=== PATIENT | female | born 1975 | race Caucasian/White ===

== ENCOUNTER 2017-09-01 11:27 | Observation (INO) | payer OTHER ==
--- NOTE | 2017-09-01 12:34 | C.PDOC ---
History Of Present Illness 42 Y/O FEMALE C/O CHEST AND BACK PAIN FOR A COUPLE WEEKS, PT ATTRIBUTES PAIN TO "INCREASED STRESS". PT STATES MORE PAIN INTENSIFIED THIS MORNING, PREDOMINANTLY TO LEFT CHEST AND LEFT ARM. NOW C/O NEW ONSET LEFT FACE "DROOP AND NUMBNESS" AND LEFT ARM NUMBNESS STARTING AT APPX 09:30 TODAY. PT STATES SHE NOTICED SOME FACIAL ASYMMETRY WHEN SYMPTOMS FIRST STARTED. PT REPORTS NUMBNESS HAS BEEN INTERMITTENT SINCE ONSET THIS MORNING; CURRENTLY IN ER, STILL WITH NUMBNESS. DENIES SOB, NAUSEA, VOMITING, HEADACHE, VISUAL CHANGES, OR OTHER ASSOC SX. PT NOTES HISTORY OF SEIZURES, AND HAD ONE YESTERDAY. NO BREAKTHROUGH SEIZURE TODAY. Time Seen by Provider: 09/01/17 12:01 Chief Complaint (Nursing): Chest Pain History Per: Patient History/Exam Limitations: no limitations Onset/Duration Of Symptoms: Days Current Symptoms Are (Timing): Still Present Recent travel outside of the [place]: No Past Medical History Reviewed: Historical Data, Nursing Documentation, Vital Signs Vital Signs: Last Vital Signs Temp Pulse 79 09/01/17 14:16 Resp 18 09/01/17 14:16 BP 106/68 09/01/17 14:16 Pulse Ox 100 09/01/17 14:16 - Medical History PMH: Asthma, Fibromyalgia, Seizures Surgical History: - [facility] Procedures OTH NONOPER CARD AND VASC MEASURE (07/11/14) SPINAL TAP (07/12/13) Family History: States: Diabetes - Social History Hx Tobacco Use: Yes Hx Alcohol Use: Yes Hx Substance Use: No - Immunization History Hx Tetanus Toxoid Vaccination: Yes Hx Influenza Vaccination: No Hx Pneumococcal Vaccination: No Review Of Systems Except As Marked, All Systems Reviewed And Found Negative. Constitutional: Negative for: Fever, Chills Cardiovascular: Positive for: Chest Pain. Negative for: Palpitations Respiratory: Negative for: Cough, Shortness of Breath, Wheezing Gastrointestinal: Negative for: Nausea, Vomiting, Abdominal Pain Musculoskeletal: Positive for: Back Pain. Negative for: Neck Pain Skin: Negative for: Rash Neurological: Positive for: Numbness (LEFT FACE, LEFT ARM). Negative for: Headache, Dizziness Physical Exam - Physical Exam Appears: Non-toxic, No Acute Distress Skin: Normal Color, Warm, Dry Head: Atraumatic, Normacephalic Eye(s): bilateral: Normal Inspection, PERRL, EOMI Chest: Symmetrical, No Tenderness Cardiovascular: Rhythm Regular, No Murmur Respiratory: Normal Breath Sounds, No Accessory Muscle Use, No Rales, No Rhonchi , No Wheezing Gastrointestinal/Abdominal: Soft, No Tenderness Back: Normal Inspection Extremity: Normal ROM, Capillary Refill (< 2 SEC.) Neurological/Psych: Oriented x3, Other (SEE NIH FOR NEURO EXAM) Gait: Steady ED Course And Treatment - Laboratory Results Result Diagrams: 09/01/17 12:49 09/01/17 12:49 ECG: Interpreted By Me ECG Rhythm: Sinus Rhythm ECG Interpretation: Normal Rate From EC - Radiology CXR: Interpreted by Oh CXR Interpretation: Yes: No Acute Disease - CT Scan/US CT HEAD Other Rad Studies (CT/US): Read By Radiologist, Radiology Report Reviewed CT/US Interpretation: FINDINGS: HEMORRHAGE: No intracranial hemorrhage. BRAIN : No mass effect or edema. No atrophy or chronic microvascular ischemic changes. VENTRICLES: Unremarkable. No hydrocephalus. CALVARIUM: Unremarkable. PARANASAL SINUSES: Unremarkable as visualized. No significant inflammatory changes. MASTOID AIR CELLS: Unremarkable as visualized. No inflammatory changes. OTHER FINDINGS: None. IMPRESSION: No evidence of acute intracranial hemorrhage territorial infarct mass effect or midline shift. Baseline study in this institution. NIHSS Stroke Scale - Date/Time Evaluation Performed Date Performed: 09/01/17 Time Performed: 12:30 When Was NIHSS Performed: Code Stroke - How Severe is the Stroke Level of Consciousness: 0=Alert LOC to Questions: 0=Both comments correct LOC to commands: 0=Obeys both correctly Best Gaze: 0=Normal Visual: 0=No visual loss Facial: 0=Normal Motor Arm - Left: 0=No drift Motor Arm - Right: 0=No drift Motor Leg - Left: 0=No drift Motor Leg - Right: 0=No drift Limb Ataxia: 0=Absent Sensory: 1=Mild to moderate loss Best Language: 0=No aphasia Dysarthia: 0=Normal articulation Extinction & Inattention (Neglect): 0=Normal, no object Score: 1 NIHSS Stroke Scale 2 - Date/Time Evaluation Performed Date Performed: 09/01/17 Time Performed: 13:50 When Was NIHSS Performed: Code Stroke Re-evaluation - How Severe is the Stroke Level of Consciousness: 0=Alert LOC to Questions: 0=Both comments correct LOC to commands: 0=Obeys both correctly Best Gaze: 0=Normal Visual: 0=No visual loss Facial: 0=Normal Motor Arm - Left: 0=No drift Motor Arm - Right: 0=No drift Motor Leg - Left: 0=No drift Motor Leg - Right: 0=No drift Limb Ataxia: 0=Absent Sensory: 0=Normal Best Language: 0=No aphasia Dysarthia: 0=Normal articulation Extinction & Inattention (Neglect): 0=Normal, no object Score: 0 Progress - Re-Evaluation Re-evaluation Note: 09/01/17 12:30 CODE STROKE ACTIVATED 09/01/17 13:52 D/W DR MARTÍNEZ WILL ADMIT 09/01/17 13:54 DR VALDERRAMA NOTIFIED OF ADMISSION - Data Reviewed Data Reviewed: Lab, Diagnostic imaging, EKG, Old records - Critical Care Citical Care: Excluding Proc Time Critical Care Time: 90 minutes rTPA Inclusion/Exclusion - Refusal of Treatment Patient Refused Treatment: No - Inclusion Criteria for Altepase Patient is 18 years or Older: Yes The Clinical Diagnosis of Ischemic Stroke That is Causing a Potentially Disabling Neurological Deficit: Yes Time of Onset is Well Established to be Less Than 270 Minute Before Treatment Would Begin: No Risk/Benefit Discussed With Patient/Family Member Present: No - Exclusion Criteria for Altepase Uncontrolled Hypertension at Time of Treatment (Systolic BP above 185 or Diastolic BP above 110 mmHg): No Active Internal Bleeding: No Known Bleeding Diathesis Including but Not Limited to: Platelets Below 100,000/ mm,PTT Above 40 sec After Heparin Use, Current Use of Oral Anitcoagulant With INR Greater Than 1.7 or PT Greater Than 15 secs: No Evidence of an Intracranial Hemorrhage: No Evidence of Major Acute Infarct With Signs Greater Than 1/3 MCA Territory: No Suspicion of Subarachnoid Hemorrhage on Pretreatment Evaluation Even if CT Head Negative For Hemorrhage: No - Warning to TPA With Conditions Following Conditions Weighed Against Anticipated Benefit: Yes Condition: Stroke Serevity Too Mild, Rapid Improvement Disposition Counseled Patient/Family Regarding: Studies Performed, Diagnosis - Disposition Disposition: HOSPITALIZED Disposition Time: 13:52 Condition: STABLE - POA Present On Arrival: None - Clinical Impression Clinical Impression: Chest pain, TIA (transient ischemic attack) - Scribe Statement The provider has reviewed the documentation as recorded by the Scribe SM All medical record entries made by the Scribe were at my direction and personally dictated by me. I have reviewed the chart and agree that the record accurately reflects my personal performance of the history, physical exam, medical decision making, and the department course for this patient. I have also personally directed, reviewed, and agree with the discharge instructions and disposition. Decision To Admit - Pt Status Changed To: Hospital Disposition Of: Observation - . Bed Request Type: Telemetry Admitting Physician: Jas Martínez Jr. Patient Diagnosis: Chest pain, TIA (transient ischemic attack)
--- NOTE | 2017-09-01 12:46 | CT ---
PROCEDURE: CT HEAD WITHOUT CONTRAST. HISTORY: Code Stroke L FACIAL NUMB COMPARISON: None available. TECHNIQUE: Axial computed tomography images were obtained through the head/brain without intravenous contrast. Radiation dose: Total exam DLP = 854.48 mGy-cm. This CT exam was performed using one or more of the following dose reduction techniques: Automated exposure control, adjustment of the mA and/or kV according to patient size, and/or use of iterative reconstruction technique. FINDINGS: HEMORRHAGE: No intracranial hemorrhage. BRAIN: No mass effect or edema. No atrophy or chronic microvascular ischemic changes. VENTRICLES: Unremarkable. No hydrocephalus. CALVARIUM: Unremarkable. PARANASAL SINUSES: Unremarkable as visualized. No significant inflammatory changes. MASTOID AIR CELLS: Unremarkable as visualized. No inflammatory changes. OTHER FINDINGS: None. IMPRESSION: No evidence of acute intracranial hemorrhage territorial infarct mass effect or midline shift. Baseline study in this institution.
[2017-09-01 12:47] VITALS: BMI 28.0
[2017-09-01 13:02] LABS: BASO # 0.1 K/uL (0.0-0.2); BASO % 0.6 % (0.0-2.0); EOS # 0.1 K/uL (0.0-0.7); EOS % 1.5 % (0.0-4.0); HEMATOCRIT 40.4 % (34.0-47.0); LYMPH # 2.6 K/uL (1.0-4.3); LYMPH % 28.6 % (20.0-40.0); MEAN CORPUSCULAR HEMOGLOBIN 28.9 pg (27.0-31.0); MEAN CORPUSCULAR HGB CONC 33.2 g/dL (33.0-37.0); MEAN PLATELET VOLUME 9.1 fL (7.2-11.7); MONO # 0.8 K/uL (0.0-0.8); RED CELL DISTRIBUTION WIDTH 13.4 % (11.5-14.5); WHITE BLOOD COUNT 8.9 K/uL (4.8-10.8)
[2017-09-01 13:03] LABS: CHLORIDE 105 mmol/L (98-107)
[2017-09-01 13:04] LABS: POTASSIUM 3.8 mmol/L (3.6-5.2); SODIUM 134 mmol/L (132-148)
[2017-09-01 13:06] LABS: CARBON DIOXIDE 17 mmol/L (22-30); CHOLESTEROL 209 mg/dL (0-199); GFR AFRICAN-AMERICAN > 60
[2017-09-01 13:07] LABS: ALB/GLOB RATIO 1.7 (1.0-2.1); ALKALINE PHOSPHATASE 54 U/L (38-126); ALT/SGPT 34 U/L (9-52); AST/SGOT 21 U/L (14-36); BILIRUBIN,TOTAL 0.9 mg/dL (0.2-1.3); BLOOD UREA NITROGEN 14 mg/dL (7-17); CALCIUM 9.1 mg/dl (8.6-10.4); GLUCOSE,RANDOM 89 mg/dL (65-105); TOTAL PROTEIN 7.1 g/dL (6.3-8.3)
--- NOTE | 2017-09-01 13:18 | RAD ---
HISTORY: CP COMPARISON: Comparison chest 07/14/2015 FINDINGS: LUNGS: No active pulmonary disease. PLEURA: No significant pleural effusion identified, no pneumothorax apparent. CARDIOVASCULAR: Normal. OSSEOUS STRUCTURES: No significant abnormalities. VISUALIZED UPPER ABDOMEN: Normal. OTHER FINDINGS: None. IMPRESSION: No active disease.
[2017-09-01 13:19] LABS: INR 1.1
--- NOTE | 2017-09-01 18:06 | CP.PCM.HP ---
History of Present Illness - History of Present Illness History of Present Illness: CC: facial droop and left arm weakness This is a 42 year old female with a past medical history psychogenic nonepileptic seizures, converstion disorder, fibromyalgia, PTSD, TIA in 2010, who presented to the ED as a code stroke with numbness on left side, left facial droopness, and left arm weakness which began this morning at 9am. After the onset of these symptoms this morning the patient took a shower and called an uber and came to the hospital. She says her symptoms persisted until she arrived to the ED at which point they resolved soon after. She also admits to left sided chest pain that's been ongoing for the past 3 weeks. 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 On review of systems she denied nausea, vomiting, diarrhea, constipation, headache, blurry vision, other focal deficits, palpitations, fever , chills. PMD: Dr Martínez PMHx: psychogenic nonepileptic seizures, fibromyalgia, PTSD, TIA 2010, and per Dr Martínez patient has conversion disorder PSHx: c-sections x3 Allergies: levofloxacin - anaphylaxis, seafood - anaphylaxis Home Meds: levetiracetam 500mg po bid, topiramate 100mg po bid, celexa 20mg po qd FamHx: Father - HTN, DM, Pancreatic CA. Mother - HTN, DM Present on Admission - Present on Admission Any Indicators Present on Admission: No Review of Systems - Constitutional Constitutional: absent: Chills, Fever, Headache - EENT Eyes: absent: Blurred Vision, Change in Vision Ears: absent: Ear Pain Nose/Mouth/Throat: absent: Nasal Congestion - Cardiovascular Cardiovascular: Chest Pain. absent: Diaphoresis, Dyspnea, Lightheadedness, Palpitations - Respiratory Respiratory: absent: Cough, Hemoptysis, Wheezing - Gastrointestinal Gastrointestinal: absent: Abdominal Pain, Diarrhea - Genitourinary Genitourinary: absent: Dysuria - Musculoskeletal Musculoskeletal: Muscle Weakness. absent: Back Pain - Neurological Neurological: Numbness, Focal Weakness, Paresthesias - Psychiatric Psychiatric: Depression Past Patient History - Infectious Disease Hx of Infectious Diseases: None - Past Medical History & Family History Past Medical History?: Yes - Past Social History Smoking Status: Light Smoker < 10 Cigarettes Daily - PULMONARY Hx Asthma: Yes - NEUROLOGICAL Hx Seizures: Yes - HEENT Hx HEENT Problems: No - RENAL Hx Chronic Kidney Disease: No - ENDOCRINE/METABOLIC Hx Endocrine Disorders: No Hx Systemic Lupus Erythematosus: Yes - HEMATOLOGICAL/ONCOLOGICAL Hx Blood Disorders: No - INTEGUMENTARY Hx Dermatological Problems: No - MUSCULOSKELETAL/RHEUMATOLOGICAL Hx Musculoskeletal Disorders: Yes - GASTROINTESTINAL Hx Gastrointestinal Disorders: No - GENITOURINARY/GYNECOLOGICAL Hx Sexually Transmitted Disorders: No - PSYCHIATRIC Hx Substance Use: No - ANESTHESIA Hx Anesthesia: Yes Meds Allergies/Adverse Reactions: Allergies Allergy/AdvReac Type Severity Reaction Status Date / Time levofloxacin Allergy Severe SHORTNESS Verified 09/01/17 11:42 OF BREATH shellfish derived Allergy Severe ANGIOEDEMA Verified 09/01/17 11:42 dye Allergy Severe SHORTNESS Uncoded 09/01/17 11:42 OF BREATH iv dye Allergy Uncoded 09/01/17 11:42 Physical Exam - Constitutional Appears: Well, No Acute Distress - Head Exam Head Exam: ATRAUMATIC, NORMAL INSPECTION - Eye Exam Eye Exam: EOMI Pupil Exam: PERRL - ENT Exam ENT Exam: Mucous Membranes Moist - Neck Exam Neck exam: Positive for: Normal Inspection. Negative for: Tenderness - Respiratory Exam Respiratory Exam: Clear to Auscultation Bilateral, NORMAL BREATHING PATTERN. absent: Rales, Rhonchi, Wheezes - Cardiovascular Exam Cardiovascular Exam: REGULAR RHYTHM, RRR, +S1, +S2. absent: Bradycardia, Tachycardia, Irregular Rhythm, JVD - GI/Abdominal Exam GI & Abdominal Exam: Normal Bowel Sounds, Soft. absent: Distended, Firm, Guarding, Tenderness - Extremities Exam Extremities exam: Positive for: full ROM, normal capillary refill, normal inspection. Negative for: tenderness - Neurological Exam Neurological exam: Alert, CN II-XII Intact, Oriented x3 Additional comments: motor strength 5/5 all extremities no focal deficits noted sensation intact in face and all extremities babinski negative heel to husain normal pronator drift test normal - Psychiatric Exam Psychiatric exam: Normal Affect, Normal Mood - Skin Skin Exam: Intact, Normal Color, Warm Results - Vital Signs Recent Vital Signs: Last Vital Signs Temp Pulse 66 09/01/17 17:30 Resp 18 09/01/17 17:30 BP 110/72 09/01/17 17:30 Pulse Ox 100 09/01/17 17:30 - Labs Result Diagrams: 09/01/17 12:49 09/01/17 12:49 Labs: Laboratory Results - last 24 hr 09/01/17 09/01/17 09/01/17 12:34 12:49 12:49 WBC 8.9 RBC 4.64 Hgb 13.4 Hct 40.4 MCV 87.0 D MCH 28.9 MCHC 33.2 RDW 13.4 Plt Count 232 MPV 9.1 Neut % (Auto) 60.3 Lymph % (Auto) 28.6 [place] % (Auto) 9.0 Eos % (Auto) 1.5 Baso % (Auto) 0.6 Neut # 5.4 Lymph # 2.6 [place] # 0.8 Eos # 0.1 Baso # 0.1 PT INR APTT Sodium 134 Potassium 3.8 Chloride 105 Carbon Dioxide 17 L Anion Gap 16 BUN 14 Creatinine 0.7 Est GFR ( Amer) > 60 Est GFR (Non-Af Amer) > 60 POC Glucose (mg/dL) Random Glucose 89 Hemoglobin A1c 5.2 Calcium 9.1 Total Bilirubin 0.9 AST 21 ALT 34 Alkaline Phosphatase 54 Troponin I < 0.0120 Total Protein 7.1 Albumin 4.5 Globulin 2.6 Albumin/Globulin Ratio 1.7 Triglycerides 96 Cholesterol 209 H LDL Cholesterol Direct 136 H HDL Cholesterol 64 Blood Type Antibody Screen 09/01/17 09/01/17 09/01/17 12:57 13:04 13:21 WBC RBC Hgb Hct MCV MCH MCHC RDW Plt Count MPV Neut % (Auto) Lymph % (Auto) [place] % (Auto) Eos % (Auto) Baso % (Auto) Neut # Lymph # [place] # Eos # Baso # PT 12.4 H INR 1.1 APTT 31 Sodium Potassium Chloride Carbon Dioxide Anion Gap BUN Creatinine Est GFR ( Amer) Est GFR (Non-Af Amer) POC Glucose (mg/dL) 93 Random Glucose Hemoglobin A1c Calcium Total Bilirubin AST ALT Alkaline Phosphatase Troponin I Total Protein Albumin Globulin Albumin/Globulin Ratio Triglycerides Cholesterol LDL Cholesterol Direct HDL Cholesterol Blood Type O POSITIVE Antibody Screen Negative Assessment & Plan (1) TIA (transient ischemic attack) Assessment and Plan: Per PMD Dr Martínez, likely conversion disorder CT Head 09/01/17 No evidence of acute intracranial hemorrhage territorial infarct mass effect or midline shift. Baseline study in this institution. NIHSS stroke scale 1 NIHSS stroke scale repeat 0 Status: Acute (2) Chest pain Assessment and Plan: Chest pain present for past 3 weeks EKG normal Troponin negative CXR 09/01/17 no active disease Status: Acute (3) Psychogenic nonepileptic seizure Assessment and Plan: con't home med levetiracetam 500mg po bid con't home med topiramate 100mg po bid Status: Acute (4) Prophylactic measure Assessment and Plan: heparin 5000u sc q8, SCDs pepcid 20mg po qd regular diet con't home med celexa 20mg po qd Status: Acute
[2017-09-01 18:43] VITALS: RESP 20
[2017-09-02 07:49] VITALS: BP 98/59; PULSE 64; TEMP 97.7; O2SAT 100
[2017-09-02] MEDS ORDERED: Home Med 1 UNIT (Multivit,Iron,Min 5/Folic Acid [Strovite Forte Caplet] 1 TAB) PO SCH (10:00)
[2017-09-02 13:43] LABS: RBC URINE 42 /hpf (0-3); URINE BACTERIA FEW (<OCC); URINE BILIRUBIN NEGATIVE (NEGATIVE); URINE BLOOD 1+ (NEGATIVE); URINE CALCIUM OXALATE CRYSTALS OCC /hpf (<OCC); URINE COLOR Yellow (YELLOW); URINE GLUCOSE (UA) NORMAL (Normal); URINE KETONE NEGATIVE (NEGATIVE); URINE LEUKOCYTE ESTERASE NEG Leu/uL (Negative); URINE PROTEIN NEGATIVE (NEGATIVE); WBC URINE 5 /hpf (0-5)
--- NOTE | 2017-09-02 13:59 | CP.PCM.DIS ---
Provider - Provider Date of Admission: 09/01/17 13:52 Attending physician: Jas Martínez Jr, MD Primary care physician: PMD: Dr Martínez Time Spent in preparation of Discharge (in minutes): 45 Diagnosis - Discharge Diagnosis (1) TIA (transient ischemic attack) Status: Acute (2) Chest pain Status: Acute (3) Psychogenic nonepileptic seizure Status: Acute (4) Prophylactic measure Status: Acute Hospital Course - Lab Results Lab Results: Most Recent Lab Values WBC 8.9 K/uL (4.8-10.8) 09/01/17 12:49 RBC 4.64 Mil/uL (3.80-5.20) 09/01/17 12:49 Hgb 13.4 g/dL (11.0-16.0) 09/01/17 12:49 Hct 40.4 % (34.0-47.0) 09/01/17 12:49 MCV 87.0 fL (81.0-99.0) D 09/01/17 12:49 MCH 28.9 pg (27.0-31.0) 09/01/17 12:49 MCHC 33.2 g/dL (33.0-37.0) 09/01/17 12:49 RDW 13.4 % (11.5-14.5) 09/01/17 12:49 Plt Count 232 K/uL (130-400) 09/01/17 12:49 MPV 9.1 fL (7.2-11.7) 09/01/17 12:49 Neut % (Auto) 60.3 % (50.0-75.0) 09/01/17 12:49 Lymph % (Auto) 28.6 % (20.0-40.0) 09/01/17 12:49 [place] % (Auto) 9.0 % (0.0-10.0) 09/01/17 12:49 Eos % (Auto) 1.5 % (0.0-4.0) 09/01/17 12:49 Baso % (Auto) 0.6 % (0.0-2.0) 09/01/17 12:49 Neut # 5.4 K/uL (1.8-7.0) 09/01/17 12:49 Lymph # 2.6 K/uL (1.0-4.3) 09/01/17 12:49 [place] # 0.8 K/uL (0.0-0.8) 09/01/17 12:49 Eos # 0.1 K/uL (0.0-0.7) 09/01/17 12:49 Baso # 0.1 K/uL (0.0-0.2) 09/01/17 12:49 PT 12.4 SECONDS (9.7-12.2) H 09/01/17 13:04 INR 1.1 09/01/17 13:04 APTT 31 SECONDS (21-34) 09/01/17 13:04 Sodium 134 mmol/L (132-148) 09/01/17 12:49 Potassium 3.8 mmol/L (3.6-5.2) 09/01/17 12:49 Chloride 105 mmol/L (98-107) 09/01/17 12:49 Carbon Dioxide 17 mmol/L (22-30) L 09/01/17 12:49 Anion Gap 16 (10-20) 09/01/17 12:49 BUN 14 mg/dL (7-17) 09/01/17 12:49 Creatinine 0.7 mg/dL (0.7-1.2) 09/01/17 12:49 Est GFR ( Amer) > 60 09/01/17 12:49 Est GFR (Non-Af Amer) > 60 09/01/17 12:49 POC Glucose (mg/dL) 102 mg/dL (65-110) 09/02/17 11:45 Random Glucose 89 mg/dL (65-105) 09/01/17 12:49 Hemoglobin A1c 5.2 % (4.2-6.5) 09/01/17 12:34 Calcium 9.1 mg/dl (8.6-10.4) 09/01/17 12:49 Total Bilirubin 0.9 mg/dL (0.2-1.3) 09/01/17 12:49 AST 21 U/L (14-36) 09/01/17 12:49 ALT 34 U/L (9-52) 09/01/17 12:49 Alkaline Phosphatase 54 U/L (38-126) 09/01/17 12:49 Troponin I < 0.0120 ng/mL (0.00-0.120) 09/01/17 12:49 Total Protein 7.1 g/dL (6.3-8.3) 09/01/17 12:49 Albumin 4.5 g/dL (3.5-5.0) 09/01/17 12:49 Globulin 2.6 gm/dL (2.2-3.9) 09/01/17 12:49 Albumin/Globulin Ratio 1.7 (1.0-2.1) 09/01/17 12:49 Triglycerides 96 mg/dL (0-149) 09/01/17 12:49 Cholesterol 209 mg/dL (0-199) H 09/01/17 12:49 LDL Cholesterol Direct 136 mg/dL (0-129) H 09/01/17 12:49 HDL Cholesterol 64 mg/dL (30-70) 09/01/17 12:49 Urine Color Yellow (YELLOW) 09/02/17 13:32 Urine Clarity Hazy (Clear) 09/02/17 13:32 Urine pH 6.0 (5.0-8.0) 09/02/17 13:32 Ur Specific [place] 1.021 (1.003-1.030) 09/02/17 13:32 Urine Protein Negative mg/dL (NEGATIVE) 09/02/17 13:32 Urine Glucose (UA) Normal mg/dL (Normal) 09/02/17 13:32 Urine Ketones Negative mg/dL (NEGATIVE) 09/02/17 13:32 Urine Blood 1+ (NEGATIVE) H 09/02/17 13:32 Urine Nitrate Negative (NEGATIVE) 09/02/17 13:32 Urine Bilirubin Negative (NEGATIVE) 09/02/17 13:32 Urine Urobilinogen 2.0 mg/dL (0.2-1.0) H 09/02/17 13:32 Ur Leukocyte Esterase Neg [place]/uL (Negative) 09/02/17 13:32 Urine WBC (Auto) 5 /hpf (0-5) 09/02/17 13:32 Urine RBC (Auto) 42 /hpf (0-3) H 09/02/17 13:32 Ur Squamous Epith Cells 8 /hpf (0-5) H 09/02/17 13:32 Calcium Oxalate Crystal Occ /hpf (<OCC) H 09/02/17 13:32 Urine Bacteria Few (<OCC) H 09/02/17 13:32 Blood Type O POSITIVE 09/01/17 13:21 Antibody Screen Negative 09/01/17 13:21 - Hospital Course Hospital Course: CC: facial droop and left arm weakness This is a 42 year old female with a past medical history psychogenic nonepileptic seizures, converstion disorder, fibromyalgia, PTSD, TIA in 2010, who presented to the ED as a code stroke with numbness on left side, left facial droopness, and left arm weakness which began this morning at 9am. After the onset of these symptoms this morning the patient took a shower and called an uber and came to the hospital. She says her symptoms persisted until she arrived to the ED at which point they resolved soon after. She also admits to left sided chest pain that's been ongoing for the past 3 weeks. 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 On review of systems she denied nausea, vomiting, diarrhea, constipation, headache, blurry vision, other focal deficits, palpitations, fever , chills. PMD: Dr Martínez PMHx: psychogenic nonepileptic seizures, fibromyalgia, PTSD, TIA 2010, and per Dr Martínez patient has conversion disorder PSHx: c-sections x3 Allergies: levofloxacin - anaphylaxis, seafood - anaphylaxis Home Meds: levetiracetam 500mg po bid, topiramate 100mg po bid, celexa 20mg po qd FamHx: Father - HTN, DM, Pancreatic CA. Mother - HTN, DM HOSPITAL COURSE: Questionable TIA, most likely conversion disorder. A CT head was ordered which showed "no evidence of acute intracranial hemorrhage territorial infarct mass effect or midline shift. Baseline study in this institution". NIHSS stroke scale on admission was 1. EKG normal. Troponin normal. CXR shows no active disease. We continued her home medications. We started her on crestor 10mg qhs and aspirin 81mg qd as her lipid panel was elevated. Discharge Exam - Additional Findings Additional findings: - Constitutional Appears: Well, No Acute Distress - Head Exam Head Exam: ATRAUMATIC, NORMAL INSPECTION - Eye Exam Eye Exam: EOMI Pupil Exam: PERRL - ENT Exam ENT Exam: Mucous Membranes Moist - Neck Exam Neck exam: Positive for: Normal Inspection. Negative for: Tenderness - Respiratory Exam Respiratory Exam: Clear to Auscultation Bilateral, NORMAL BREATHING PATTERN. absent: Rales, Rhonchi, Wheezes - Cardiovascular Exam Cardiovascular Exam: REGULAR RHYTHM, RRR, +S1, +S2. absent: Bradycardia, Tachycardia, Irregular Rhythm, JVD - GI/Abdominal Exam GI & Abdominal Exam: Normal Bowel Sounds, Soft. absent: Distended, Firm, Guarding, Tenderness - Extremities Exam Extremities exam: Positive for: full ROM, normal capillary refill, normal inspection. Negative for: tenderness - Neurological Exam Neurological exam: Alert, CN II-XII Intact, Oriented x3 Additional comments: motor strength 5/5 all extremities no focal deficits noted sensation intact in face and all extremities babinski negative heel to husain normal pronator drift test normal - Psychiatric Exam Psychiatric exam: Normal Affect, Normal Mood - Skin Skin Exam: Intact, Normal Color, Warm Discharge Plan - Discharge Medications Prescriptions: Aspirin 81 mg PO DAILY #30 tab.chew Rosuvastatin Calcium [Crestor] 10 mg PO HS #30 tab - Follow Up Plan Condition: STABLE Disposition: HOME/ ROUTINE Instructions: Transient Ischemic Attack (DC), Epilepsy (DC) Additional Instructions: Take the following NEW medications as instructed: crestor 10mg by mouth every night Aspirin 81mg by mouth every morning Continue taking all your home medications. Follow-up with Dr Martínez in his office in 1 week. If he wants you to see a specialist, please do so. Thank you. Referrals: Isra Jones MD [Staff Provider] - Gio Barnett MD [Staff Provider] - Jas Martínez Jr., MD [Medical Doctor] -
[2017-09-02] MEDS ORDERED: Influenza Vaccine 60 mcg/0.5 mL SYR (4YR UP) IM ONE (14:00)
[2017-09-02] MEDS ORDERED: Pneumococcal 23-Valent Vaccine IM ONE (14:00)
[2017-09-03] MEDS ORDERED: Influenza Vaccine 60 mcg/0.5 mL SYR (4YR UP) IM ONE (10:00)
[2017-09-03] MEDS ORDERED: Pneumococcal 23-Valent Vaccine IM ONE (10:00)
--- NOTE | 2017-09-04 21:35 | CARD ---
APPROVED REPORT EKG Measurement Heart [id number] DC [id number] <Conclusion> Normal sinus rhythm Normal ECG
== END 2017-09-02 15:34 | disposition home or self-care (01) ==
LOC: C.ER 11:27 → C.9E 13:52 → C.6T 17:54
PROVIDERS: ADMIT Internal Medicine; ATTEND Internal Medicine
DX: G45.9 Transient cerebral ischemic attack, unspecified (principal); R07.89 Other chest pain; G40.89 Other seizures; F54 Psychological and behavioral factors associated with disorders or diseases classified elsewhere; M79.7 Fibromyalgia; F43.10 Post-traumatic stress disorder, unspecified; F44.9 Dissociative and conversion disorder, unspecified; R29.701 NIHSS score 1; Z23 Encounter for immunization
CPT/HCPCS: 70450; 71010; 80053; 80061; 81001; 82948; 83036; 84484; 85025; 85610; 85730; 86850; 86900; 90471; 90472; 90674; 90732; 92610; 93005; 99285; G0378; G8996; G8997